=== PATIENT | male | born 1945 | race Caucasian/White ===

== ENCOUNTER → 2021-06-27 11:37 | Outpatient (BNVA) | payer MEDICARE, SELFPAY | PROVIDERS: PCP Family Medicine; Visit Provider Psychiatry & Neurology Neurology | DX: G20 Parkinson's disease (principal); F03.90 Unspecified dementia, unspecified severity, without behavioral disturbance, psychotic disturbance, mood disturbance, and anxiety | CPT/HCPCS: 99212 ==

== ENCOUNTER → 2021-08-07 11:36 | Outpatient (BNVA) | payer MEDICARE, SELFPAY | PROVIDERS: PCP Family Medicine; Visit Provider Psychiatry & Neurology Neurology | DX: G20 Parkinson's disease (principal); F03.90 Unspecified dementia, unspecified severity, without behavioral disturbance, psychotic disturbance, mood disturbance, and anxiety | CPT/HCPCS: 99212 ==

== ENCOUNTER → 2021-11-16 22:11 | Outpatient (REF) | payer MEDICARE, SELFPAY | LOC: HO.SL 22:11 | PROVIDERS: Visit Provider Psychiatry & Neurology Neurology | DX: G47.33 Obstructive sleep apnea (adult) (pediatric) (principal); G47.10 Hypersomnia, unspecified | CPT/HCPCS: 95810 ==

== ENCOUNTER → 2021-11-22 14:00 | Outpatient (BNVA) | payer MEDICARE, SELFPAY | PROVIDERS: PCP Family Medicine; Visit Provider Psychiatry & Neurology Neurology | DX: G20 Parkinson's disease (principal); F03.90 Unspecified dementia, unspecified severity, without behavioral disturbance, psychotic disturbance, mood disturbance, and anxiety | CPT/HCPCS: 99212 ==

== ENCOUNTER → 2022-02-21 08:58 | Outpatient (BNVA) | payer MEDICARE, SELFPAY | PROVIDERS: PCP Family Medicine; Visit Provider Psychiatry & Neurology Neurology | DX: G20 Parkinson's disease (principal); F02.80 Dementia in other diseases classified elsewhere, unspecified severity, without behavioral disturbance, psychotic disturbance, mood disturbance, and anxiety; Z79.899 Other long term (current) drug therapy | CPT/HCPCS: 99212 ==

== ENCOUNTER → 2022-04-24 10:16 | Outpatient (BNVA) | payer MEDICARE, SELFPAY | PROVIDERS: PCP Family Medicine; Visit Provider Psychiatry & Neurology Neurology | DX: G20 Parkinson's disease (principal); F03.90 Unspecified dementia, unspecified severity, without behavioral disturbance, psychotic disturbance, mood disturbance, and anxiety; Z79.899 Other long term (current) drug therapy | CPT/HCPCS: 99212 ==

== ENCOUNTER → 2022-07-04 13:51 | Outpatient (BNVA) | payer MEDICARE, SELFPAY | PROVIDERS: PCP Family Medicine; Visit Provider Psychiatry & Neurology Neurology | DX: G20 Parkinson's disease (principal); F03.90 Unspecified dementia, unspecified severity, without behavioral disturbance, psychotic disturbance, mood disturbance, and anxiety; M54.50 Low back pain, unspecified; Z79.899 Other long term (current) drug therapy | CPT/HCPCS: 99212 ==

== ENCOUNTER → 2022-08-22 09:05 | Outpatient (BNVA) | payer MEDICARE, SELFPAY | PROVIDERS: PCP Family Medicine; Visit Provider Psychiatry & Neurology Neurology | DX: G20 Parkinson's disease (principal); F02.80 Dementia in other diseases classified elsewhere, unspecified severity, without behavioral disturbance, psychotic disturbance, mood disturbance, and anxiety; Z79.899 Other long term (current) drug therapy | CPT/HCPCS: 99212 ==

== ENCOUNTER 2022-10-17 13:49 | Outpatient (AMB) | payer MEDICARE, SELFPAY ==
--- NOTE | 2022-10-17 13:57 | MHC.OFFVIS ---
Intake Vital Signs 10/17/22 13:58 Height 5 ft 10 in Weight 125 lb 1 oz BMI 17.9 BP 124/76 Blood Pressure Location Rt brachial Position Sitting Pulse 64 Pulse Source Pulse Oximeter Pulse Oximetry (%) 98 Oxygen Delivery Method Room Air Intake Visit Reasons: 3m follow up-confirmed Intake Note: Patient presents for 3 month follow up Allergies No Known Allergies Allergy (Verified 10/17/22 14:01) Medication List - Last Reconciled 10/17/22 by Aimee Lees MD alclometasone 0.05% topical BID carbidopa-levodopa 25-100 mg 1 tab PO TID 90 days carbidopa-levodopa 25-100 mg ER 1 tab PO .qd 30 days citalopram 20 mg PO DAILY donepezil 10 mg PO DAILY famotidine 20 mg PO BID fluocinonide-emollient 0.05 % (Fluocinonide-E) appl topical BID melatonin 3 mg PO BEDTIME memantine 28 mg PO DAILY multivitamin (Daily Multi-Vitamin tablet) 1 tab PO DAILY rasagiline 0.5 mg PO DAILY HPI HPI Comments History of Present Illness Details 77y/o male with parkinsons disease, dementia comes for follow up. He is now on sinemet 25/100 [id number] sinemet ER 25/100 6pm .He wake sup 1/night to use the bathroom No hallucinations. He was seen by geriatrics - Dr. Mcmahon who trialed him on mirtazepine but he paradoxical reactions- delusions . It was stopped after few days. .He is on memantine 28mg qd No freezing episodes . He has anxiety when his dopamine level drops- he is panicking and short of breath usually responds to an extra pill with a snack He has trouble gaining weight. He reports constipation. His neuropsych eval was c/w moderate dementia. He is independent in all his ADLs. Sleep study was consistent with moderate to loud snoring AHI 10 REM was not recorded responded to CPAP 11. [facility] Medical History Adenomatous hyperplasia of prostate Anxiety Color blindness GERD (gastroesophageal reflux disease) Low back pain Surgical History H/O rotator cuff surgery History of hernia surgery History of knee surgery Social History Alcohol intake: never Patient Tobacco Use Status: Never used Tobacco Physical Exam Vital Signs: Last Vital Signs Pulse 64 10/17/22 13:58 BP 124/76 10/17/22 13:58 Pulse Ox 98 10/17/22 13:58 Oxygen Delivery Method Room Air 10/17/22 13:58 BMI result Body Mass Index 17.9 Const General: cooperative, healthy appearing and no acute distress Orientation/consciousness: patient oriented x3 HEENT Head: Yes normal to inspection Neck Other: mild antecollis and restricted range of motion Neuro Other: Mild decreased blink and facial expression Voice- mild hypophonia No tremors Fine Finger movements - moderately decreased dante l>R Alternating hand movements - decreased dante Hand movements - decreased dante Foot taps- decreased dante No cog wheel rigidity gait - mild stooped, mild slowness and decreased arm swing R>L General: patient oriented x3 and no focal motor deficits Cranial nerves: Yes CN's II-XII intact bilaterally, Yes Bilaterally intact EOM present, Yes Normal facial strength present and Yes Midline tongue present Cognition (Neuro): abnormal cognition (repeats questions frequently) Motor exam (neuro): 5/5 motor strength present throughout Coordination: [id number] test normal Assessment & Plan Assessment & Plan (1) Parkinson's disease: Code(s): G20 - Parkinson's disease (2) Dementia: Code(s): F03.90 - Unspecified dementia, unspecified severity, without behavioral disturbance, psychotic disturbance, mood disturbance, and anxiety Plan carbidopa/levodopa 25/100 tid and extra 1/2 tab as needed for off period and carbidopa/levodopa ER Namenda XR 28mg qd at bedtime aricept 10mg qd citalopram 20mg for anxiety Increase fluids-5 bottles per day continue exercises.-starting home PT with Lori Alex Use Miralax for constipation Use cane consistently Medications: Changed From carbidopa-levodopa 25-100 mg 1 tab PO QID 90 days 360 tabs 6RF To carbidopa-levodopa 25-100 mg 1 tab PO TID 90 days 270 tabs 6RF Coding Level of Care Code Est Pt Level 4 (22684) Diagnoses Parkinson's disease G20 Dementia F03.90
[2022-10-17 13:58] VITALS: BP 124/76; PULSE 64; O2SAT 98; BMI 17.9
== END 2022-10-17 14:29 | disposition home or self-care (01) ==
PROVIDERS: Visit Provider Psychiatry & Neurology Neurology
DX: G20 Parkinson's disease (principal); F03.90 Unspecified dementia, unspecified severity, without behavioral disturbance, psychotic disturbance, mood disturbance, and anxiety
CPT/HCPCS: 99214

== ENCOUNTER → 2022-10-17 13:49 | Outpatient (BNVA) | payer MEDICARE, SELFPAY | PROVIDERS: Visit Provider Psychiatry & Neurology Neurology | DX: G20 Parkinson's disease (principal); F03.90 Unspecified dementia, unspecified severity, without behavioral disturbance, psychotic disturbance, mood disturbance, and anxiety; K59.00 Constipation, unspecified | CPT/HCPCS: 99212 ==

== ENCOUNTER 2023-01-23 12:52 | Outpatient (AMB) | payer MEDICARE, SELFPAY ==
--- NOTE | 2023-01-23 12:55 | A.OFFVIS_ITS ---
Intake Vital Signs 01/23/23 12:57 Height 5 ft 10 in Weight 130 lb 2 oz BMI 18.7 BP 102/58 L Blood Pressure Location Lt brachial Position Sitting Respiration 17 Pulse 64 Pulse Source Palpation Intake Visit Reasons: 3m follow up - Confirmed Intake Note: Pt presents to the office for a 3 month follow up for Dementia. He is here with his Shon and daughter Jesi. Pt reports hes had mixed days since his last visit. Some good days and some bad days. Bad days consist of some joint stiffness, mild joint pain and increased confusion. His short term memory is mostly impaired. 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 Allergies No Known Allergies Allergy (Verified 01/23/23 12:57) Medication List - Last Reconciled 01/23/23 by Aimee Lees MD alclometasone 0.05% topical BID carbidopa-levodopa 25-100 mg 1 tab PO TID 90 days carbidopa-levodopa 25-100 mg ER 2 tabs PO .qd 30 days citalopram 20 mg PO DAILY donepezil 10 mg PO DAILY famotidine 20 mg PO BID fluocinonide-emollient 0.05 % (Fluocinonide-E) appl topical BID magnesium oxide mg PO memantine 28 mg PO DAILY multivitamin (Daily Multi-Vitamin tablet) 1 tab PO DAILY HPI HPI Comments History of Present Illness Details 77y/o male with parkinsons disease, cathryn crum comes for follow up. He is now on sinemet 25/100 [id number] sinemet ER 25/100 6pm .He wakes up 1/night to use the bathroom He has early wearing off and has some freezing epsidoes No hallucinations. .He is on memantine 28mg qd No freezing episodes . He has trouble gaining weight. He reports constipation. His neuropsych eval was c/w moderate dementia. He is independent in all his ADLs. Sleep study was consistent with moderate to loud snoring AHI 10 REM was not rec orded responded to CPAP 11. [facility] Medical History (Updated 01/23/23 @ 13:19 by Aimee Lees MD) Parkinson's disease without dyskinesia, with fluctuating manifestations Color blindness Low back pain GERD (gastroesophageal reflux disease) Adenomatous hyperplasia of prostate Anxiety Surgical History History of knee surgery H/O rotator cuff surgery History of hernia surgery Social History Alcohol intake: never Patient Tobacco Use Status: Never used Tobacco Physical Exam Vital Signs: Last Vital Signs Pulse 64 01/23/23 12:57 Resp 17 01/23/23 12:57 BP 102/58 L 01/23/23 12:57 BMI result Body Mass Index 18.7 Const General: cooperative, healthy appearing and no acute distress Orientation/consciousness: patient oriented x3 HEENT Head: Yes normal to inspection Neck Other: mild antecollis and restricted range of motion Neuro Other: Mild decreased blink and facial expression Voice- mild hypophonia No tremors Fine Finger movements - moderately decreased dante l>R Alternating hand movements - decreased dante Hand movements - decreased dante Foot taps- decreased dante No cog wheel rigidity gait - mild stooped, mild slowness and decreased arm swing R>L General: patient oriented x3 and no focal motor deficits Cranial nerves: Yes CN's II-XII intact bilaterally, Yes Bilaterally intact EOM present, Yes Normal facial strength present and Yes Midline tongue present Cognition (Neuro): abnormal cognition (repeats questions frequently) Motor exam (neuro): 5/5 motor strength present throughout Coordination: [id number] test normal Assessment & Plan Assessment & Plan (1) Parkinson's disease without dyskinesia, with fluctuating manifestations: Code(s): G20.A2 - Parkinson's disease without dyskinesia, with fluctuations (2) Dementia: Code(s): F03.90 - Unspecified dementia, unspecified severity, without behavioral disturbance, psychotic disturbance, mood disturbance, and anxiety Plan carbidopa/levodopa 25/100 tid and extra 1/2 tab as needed for off period and carbidopa/levodopa ER Namenda XR 28mg qd at bedtime aricept 10mg qd citalopram 20mg for anxiety Increase fluids-5 bottles per day continue exercises.-starting home PT with Lori Alex Use Miralax for constipation Use cane consistently Medications: New lorazepam 0.5 mg PO BID PRN 14 tabs 0RF anxiety Changed From carbidopa-levodopa 25-100 mg ER 2 tabs PO .qd 30 days 60 tabs 3RF To carbidopa-levodopa 25-100 mg ER 1 tab PO .qd 30 days 30 tabs 3RF Coding Level of Care Code Est Pt Level 4 (29483) Diagnoses Parkinson's disease without dyskinesia, with fluctuating manifestations G20.A2 Dementia F03.90
[2023-01-23 12:57] VITALS: BP 102/58; PULSE 64; RESP 17; BMI 18.7
== END 2023-01-23 13:26 | disposition home or self-care (01) ==
PROVIDERS: PCP Family Medicine; Visit Provider Psychiatry & Neurology Neurology
DX: G20.A2 Parkinson's disease without dyskinesia, with fluctuations (principal); F03.90 Unspecified dementia, unspecified severity, without behavioral disturbance, psychotic disturbance, mood disturbance, and anxiety
CPT/HCPCS: 99214

== ENCOUNTER → 2023-01-23 12:52 | Outpatient (BNVA) | payer MEDICARE, SELFPAY | PROVIDERS: PCP Family Medicine; Visit Provider Psychiatry & Neurology Neurology | DX: F03.90 Unspecified dementia, unspecified severity, without behavioral disturbance, psychotic disturbance, mood disturbance, and anxiety (principal); G20.A2 Parkinson's disease without dyskinesia, with fluctuations | CPT/HCPCS: 99212 ==

== ENCOUNTER 2023-06-04 10:12 | Outpatient (AMB) | payer MEDICARE, SELFPAY ==
--- NOTE | 2023-06-04 10:13 | MHC.OFFVIS ---
Intake Vital Signs 06/04/23 10:14 Height 5 ft 10 in Weight 130 lb 8 oz BMI 18.7 BP 102/62 Blood Pressure Location Rt brachial Position Sitting Respiration 17 Pulse 54 Pulse Source Palpation Intake Visit Reasons: f/u for Parkinson's - CONF w/address Intake Note: Pt presents for 4 month follow up for dementia. 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 Allergies No Known Allergies Allergy (Verified 06/04/23 10:14) Medication List - Last Reconciled 06/04/23 by Aimee Lees MD alclometasone 0.05% topical BID carbidopa-levodopa 25-100 mg 1 tab PO TID 90 days carbidopa-levodopa 25-100 mg ER 1 tab PO .qd 30 days citalopram 20 mg PO DAILY donepezil 10 mg PO DAILY famotidine 20 mg PO BID fluocinonide-emollient 0.05 % (Fluocinonide-E) appl topical BID magnesium oxide mg PO memantine 28 mg PO DAILY multivitamin (Daily Multi-Vitamin tablet) 1 tab PO DAILY HPI HPI Comments History of Present Illness Details 77y/o male with parkinsons disease, dementia comes for follow up. His confusion and memory has worsened in the pats few weeks He is now on sinemet 25/100 [id number] sinemet ER 25/100 6pm .He wakes up 1/night to use the bathroom He has early wearing off and has freezing episodes He drinks about 2 glasses of fluids . No hallucinations. .He is on memantine 28mg qd He has trouble gaining weight. He reports constipation- eats a lot of fruit and fiber and takes miralax as needed.But when he gets miralax he can be incontinent. His neuropsych eval was c/w moderate dementia. He needs help with shower and dressing. he walks good with cane - which he uses occasionally. No falls. He sleeps 10-12 hrs a day Sleep study was consistent with moderate to loud snoring AHI 10 REM was not recorded responded to CPAP 11. [facility] Medical History Parkinson's disease without dyskinesia, with fluctuating manifestations Color blindness Low back pain GERD (gastroesophageal reflux disease) Adenomatous hyperplasia of prostate Anxiety Surgical History History of knee surgery H/O rotator cuff surgery History of hernia surgery Social History Alcohol intake: never Patient Tobacco Use Status: Never used Tobacco Physical Exam Vital Signs: Last Vital Signs Pulse 54 06/04/23 10:14 Resp 17 06/04/23 10:14 BP 102/62 06/04/23 10:14 BMI result Body Mass Index 18.7 Const General: cooperative, healthy appearing and no acute distress Orientation/consciousness: patient oriented x3 HEENT Head: Yes normal to inspection Neck Other: mild antecollis and restricted range of motion Neuro Other: Mild decreased blink and facial expression Voice- mild hypophonia No tremors Fine Finger movements - moderately decreased dante l>R Alternating hand movements - decreased dante Hand movements - decreased dante Foot taps- decreased dante No cog wheel rigidity gait - mild stooped, mild slowness and decreased arm swing R>L General: patient oriented x3 and no focal motor deficits Cranial nerves: Yes CN's II-XII intact bilaterally, Yes Bilaterally intact EOM present, Yes Normal facial strength present and Yes Midline tongue present Cognition (Neuro): abnormal cognition (repeats questions frequently) Motor exam (neuro): 5/5 motor strength present throughout Coordination: [id number] test normal Assessment & Plan Assessment & Plan (1) Parkinson's disease without dyskinesia, with fluctuating manifestations: Code(s): G20.A2 - Parkinson's disease without dyskinesia, with fluctuations (2) Dementia: Code(s): F03.90 - Unspecified dementia, unspecified severity, without behavioral disturbance, psychotic disturbance, mood disturbance, and anxiety Plan carbidopa/levodopa 25/100 tid and extra 1/2 tab as needed for off period and carbidopa/levodopa ER Namenda XR 28mg qd at bedtime aricept 10mg qd citalopram 20mg for anxiety Increase fluids-5 bottles per day continue exercises.-starting home PT with Lori Alex Use Miralax for constipation Use cane consistently Needs help with his ADLS- needs 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
[2023-06-04 10:14] VITALS: BP 102/62; PULSE 54; RESP 17; BMI 18.7
== END 2023-06-04 10:47 | disposition home or self-care (01) ==
PROVIDERS: PCP Family Medicine; Visit Provider Psychiatry & Neurology Neurology
DX: G20.A2 Parkinson's disease without dyskinesia, with fluctuations (principal); F03.90 Unspecified dementia, unspecified severity, without behavioral disturbance, psychotic disturbance, mood disturbance, and anxiety
CPT/HCPCS: 99214

== ENCOUNTER → 2023-06-04 10:12 | Outpatient (BNVA) | payer MEDICARE, SELFPAY | PROVIDERS: PCP Family Medicine; Visit Provider Psychiatry & Neurology Neurology | DX: G20.A2 Parkinson's disease without dyskinesia, with fluctuations (principal); F03.90 Unspecified dementia, unspecified severity, without behavioral disturbance, psychotic disturbance, mood disturbance, and anxiety | CPT/HCPCS: 99212 ==

== ENCOUNTER 2023-08-09 13:20 | Outpatient (AMB) | payer MEDICARE, SELFPAY ==
--- NOTE | 2023-08-09 13:30 | A.OFFVIS_ITS ---
Vital Signs 08/09/23 13:38 Height 5 ft 10 in Weight 126 lb 2 oz BMI 18.1 BP 92/64 Blood Pressure Location Rt brachial Position Sitting Pulse 64 Pulse Source Pulse Oximeter Pulse Oximetry (%) 98 Oxygen Delivery Method Room Air Intake Visit Reasons: Follow Up - LVM w/add Intake Note: Patient presents for f/u. Have questions about the medication Carbidopa- Levodopa. More confuse and needs guidance. More incontinence. Allergies No Known Allergies Allergy (Verified 08/09/23 13:36) Medication List - Last Reconciled 08/09/23 by Aimee Lees MD alclometasone 0.05% topical BID carbidopa-levodopa 23.75-95 mg ER (Rytary) 2 caps PO TID carbidopa-levodopa 25-100 mg 1 tab PO TID 90 days carbidopa-levodopa 25-100 mg ER 1 tab PO .qd 30 days citalopram 20 mg PO DAILY donepezil 10 mg PO DAILY famotidine 20 mg PO BID fluocinonide-emollient 0.05 % (Fluocinonide-E) appl topical BID ipratropium bromide 2 sprays intranasal BID magnesium oxide mg PO memantine 28 mg PO DAILY multivitamin (Daily Multi-Vitamin tablet) 1 tab PO DAILY HPI Comments Details: 77y/o male with parkinsons disease, dementia comes for follow up. His confusion and memory is worse, He has PT through [facility] but could not get services through elder care - he has a private home health- but she comes only once a week He is now on sinemet 25/100 [id number] sinemet ER 25/100 6pm . 1 hr after the medicine he usually slows down for 1 1/2 hrs. No hallucinations He had 1 fall 1 month ago -in a grocery store when he tried to pick something He wakes up 1/night to use the bathroom He has early wearing off and has freezing episodes He drinks about 2 glasses of fluids . No hallucinations. .He is on memantine 28mg qd He has trouble gaining weight. He reports constipation- eats a lot of fruit and fiber and takes miralax as needed.But when he gets miralax he can be incontinent. His neuropsych eval was c/w moderate dementia. He needs help with shower and dressing. he walks good with cane - which he uses occasionally. No falls. He sleeps 10-12 hrs a day Sleep study was consistent with moderate to loud snoring AHI 10 REM was not recorded responded to CPAP 11. [facility] Medical History Parkinson's disease without dyskinesia, with fluctuating manifestations Color blindness Low back pain GERD (gastroesophageal reflux disease) Adenomatous hyperplasia of prostate Anxiety Surgical History History of knee surgery H/O rotator cuff surgery History of hernia surgery Social History Alcohol intake: never Patient Tobacco Use Status: Never used Tobacco Physical Exam Vital Signs: Last Vital Signs Pulse 64 08/09/23 13:38 BP 92/64 08/09/23 13:38 Pulse Ox 98 08/09/23 13:38 Oxygen Delivery Method Room Air 08/09/23 13:38 BMI result Body Mass Index 18.1 Const General: cooperative, healthy appearing and no acute distress Orientation/consciousness: patient oriented x3 HEENT Head: Yes normal to inspection Neck Other: mild antecollis and restricted range of motion Neuro Other: Mild decreased blink and facial expression Voice- mild hypophonia No tremors Fine Finger movements - moderately decreased dante l>R Alternating hand movements - decreased dante Hand movements - decreased dante Foot taps- decreased dante No cog wheel rigidity gait - mild stooped, mild slowness and decreased arm swing R>L General: patient oriented x3 and no focal motor deficits Cranial nerves: Yes CN's II-XII intact bilaterally, Yes Bilaterally intact EOM present, Yes Normal facial strength present and Yes Midline tongue present Cognition (Neuro): abnormal cognition (repeats questions frequently) Motor exam (neuro): 5/5 motor strength present throughout Coordination: [id number] test normal Assessment & Plan Assessment & Plan (1) Parkinson's disease without dyskinesia, with fluctuating manifestations: Code(s): G20.A2 - Parkinson's disease without dyskinesia, with fluctuations Category: Medical (2) Dementia: Code(s): F03.90 - Unspecified dementia, unspecified severity, without behavioral disturbance, psychotic disturbance, mood disturbance, and anxiety Category: Medical Plan [facility] 2 caps tid Info about ADult day services Namenda XR 28mg qd at bedtime aricept 10mg qd citalopram 20mg for anxiety Increase fluids-5 bottles per day Use Miralax for constipation Use cane consistently Needs help with his ADLS- needs 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
[2023-08-09 13:38] VITALS: BP 92/64; PULSE 64; O2SAT 98; BMI 18.1
== END 2023-08-09 14:09 | disposition home or self-care (01) ==
PROVIDERS: PCP Family Medicine; Visit Provider Psychiatry & Neurology Neurology
DX: G20.A2 Parkinson's disease without dyskinesia, with fluctuations (principal); F03.90 Unspecified dementia, unspecified severity, without behavioral disturbance, psychotic disturbance, mood disturbance, and anxiety
CPT/HCPCS: 99214

== ENCOUNTER → 2023-08-09 13:20 | Outpatient (BNVA) | payer MEDICARE, SELFPAY | PROVIDERS: PCP Family Medicine; Visit Provider Psychiatry & Neurology Neurology | DX: G20.A2 Parkinson's disease without dyskinesia, with fluctuations (principal); F02.80 Dementia in other diseases classified elsewhere, unspecified severity, without behavioral disturbance, psychotic disturbance, mood disturbance, and anxiety | CPT/HCPCS: 99212 ==

== ENCOUNTER 2023-12-10 14:56 | Outpatient (AMB) | payer MEDICARE, SELFPAY ==
--- NOTE | 2023-12-10 15:09 | A.OFFVIS_ITS ---
Vital Signs 12/10/23 15:10 Height 5 ft 10 in Weight 122 lb 8 oz BMI 17.6 BP 100/70 Blood Pressure Location Rt brachial Position Sitting Respiration 16 Pulse 60 Pulse Source Palpation Intake Visit Reasons: 6 month F/U Intake Note: Pt presents tot office for a 4 month follow up for dementia. Director Client Required: No Allergies No Known Allergies Allergy (Verified 12/10/23 15:09) Medication List - Last Reconciled 12/10/23 by Aimee Lees MD alclometasone 0.05% topical BID carbidopa-levodopa 25-100 mg 1 tab PO TID 90 days citalopram 20 mg PO DAILY donepezil 10 mg PO DAILY famotidine 20 mg PO BID fluocinonide-emollient 0.05 % (Fluocinonide-E) appl topical BID ipratropium bromide 2 sprays intranasal BID magnesium oxide mg PO memantine 28 mg PO DAILY multivitamin (Daily Multi-Vitamin tablet) 1 tab PO DAILY HPI Comments Details: 78y/o male with parkinsons disease, dementia comes for follow up. No recent falls . He uses a cane most of the time. His confusion and memory are worse. He has rare RBD like episode last week He is now on sinemet 25/100 [id number] - 6pm . it takes 1 hr to start working and he has OFF periods mostly in the evenings He stopped CR and replaced with regular at 6 pm He was tried on Rytary - did not help but tried the lowest dose and was also expensive. His felt he was drowsier with ER No hallucinations He wakes up 1/night to use the bathroom He drinks about 2 glasses of fluids .. .He is on memantine 28mg qd and donepezil 10mg qd He reports constipation- eats a lot of fruit and fiber and prune juice when he gets miralax he can be incontinent. His neuropsych eval was c/w moderate dementia. He needs help with shower and dressing. He sleeps 10-12 hrs a day Sleep study was consistent with moderate to loud snoring AHI 10 REM was not recorded responded to CPAP 11. [facility] Medical History Parkinson's disease without dyskinesia, with fluctuating manifestations Color blindness Low back pain GERD (gastroesophageal reflux disease) Adenomatous hyperplasia of prostate Anxiety Surgical History History of knee surgery H/O rotator cuff surgery History of hernia surgery Social History Alcohol intake: never Patient Tobacco Use Status: Never used Tobacco Physical Exam Vital Signs: Last Vital Signs Pulse 60 12/10/23 15:10 Resp 16 12/10/23 15:10 BP 100/70 12/10/23 15:10 BMI result Body Mass Index 17.6 Const General: cooperative, healthy appearing and no acute distress Orientation/consciousness: patient oriented x3 HEENT Head: Yes normal to inspection Neck Other: mild antecollis and restricted range of motion Neuro Other: Mild decreased blink and facial expression Voice- mild hypophonia No tremors Fine Finger movements - moderately decreased dante l>R Alternating hand movements - decreased dante Hand movements - decreased dante Foot taps- decreased dante No cog wheel rigidity gait - mild stooped, mild slowness and decreased arm swing R>L General: patient oriented x3 and no focal motor deficits Cranial nerves: Yes CN's II-XII intact bilaterally, Yes Bilaterally intact EOM present, Yes Normal facial strength present and Yes Midline tongue present Cognition (Neuro): abnormal cognition (repeats questions frequently) Motor exam (neuro): 5/5 motor strength present throughout Coordination: [id number] test normal Assessment & Plan Assessment & Plan (1) Parkinson's disease without dyskinesia, with fluctuating manifestations: Code(s): G20.A2 - Parkinson's disease without dyskinesia, with fluctuations Category: Medical (2) Dementia: Code(s): F03.90 - Unspecified dementia, unspecified severity, without behavioral disturbance, psychotic disturbance, mood disturbance, and anxiety Category: Medical Plan Trial sinemet 25/100/entacapone 200mg qid Info about ADult day services - but his does not think it will be a good fit for him Namenda XR 28mg qd at bedtime Increase aricept 10mg 1 1/2 tab citalopram 20mg for anxiety Increase fluids-5 bottles per day Use Miralax for constipation Use cane consistently Needs help with his ADLS- needs 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
[2023-12-10 15:10] VITALS: BP 100/70; PULSE 60; RESP 16; BMI 17.6
== END 2023-12-10 15:44 | disposition home or self-care (01) ==
PROVIDERS: PCP Family Medicine; Visit Provider Psychiatry & Neurology Neurology
DX: G20.A2 Parkinson's disease without dyskinesia, with fluctuations (principal); F03.90 Unspecified dementia, unspecified severity, without behavioral disturbance, psychotic disturbance, mood disturbance, and anxiety
CPT/HCPCS: 99214; G2211

== ENCOUNTER → 2023-12-10 14:56 | Outpatient (BNVA) | payer MEDICARE, SELFPAY | PROVIDERS: PCP Family Medicine; Visit Provider Psychiatry & Neurology Neurology | DX: G20.A2 Parkinson's disease without dyskinesia, with fluctuations (principal); F03.90 Unspecified dementia, unspecified severity, without behavioral disturbance, psychotic disturbance, mood disturbance, and anxiety | CPT/HCPCS: 99212 ==

== ENCOUNTER 2024-02-20 13:39 | Outpatient (AMB) | payer MEDICARE, SELFPAY ==
--- NOTE | 2024-02-20 13:40 | A.OFFVIS_ITS ---
Intake Visit Reasons: FU Intake Note: Patient following up Allergies No Known Allergies Allergy (Verified 02/20/24 13:40) Medication List - Last Reconciled 02/20/24 by Aimee Lees MD alclometasone 0.05% topical BID carbidopa-levodopa 25-100 mg 1 tab PO QID citalopram 20 mg PO DAILY donepezil 23 mg PO DAILY entacapone 200 mg PO QID famotidine 20 mg PO BID fluocinonide-emollient 0.05 % (Fluocinonide-E) appl topical BID ipratropium bromide 2 sprays intranasal BID magnesium oxide mg PO memantine 28 mg PO DAILY multivitamin (Daily Multi-Vitamin tablet) 1 tab PO DAILY HPI Comments Details: 78y/o male with parkinsons disease, dementia calls for follow up. His helps with the appointment. He was able to travel to [place] last week. He had 1 fall when he was trying to get to his bed last week. He uses a cane most of the time. His confusion and memory are worse. He has more sundowning , RBD and confusional arousals since his return from [place] He is now on sinemet 25/100 [id number] - 6pm . it takes 1 hr to start working and he has OFF periods mostly in the evenings He wakes up 1/night to use the bathroom He drinks about 2 glasses of fluids .. .He is on memantine 28mg qd and donepezil 15mg qd He reports constipation- eats a lot of fruit and fiber and prune juice when he gets miralax he can be incontinent. His neuropsych eval was c/w moderate dementia. He needs help with shower and dressing. He sleeps 10-12 hrs a day Sleep study was consistent with moderate to loud snoring AHI 10 REM was not recorded responded to CPAP 11. [facility] Medical History Parkinson's disease without dyskinesia, with fluctuating manifestations Color blindness Low back pain GERD (gastroesophageal reflux disease) Adenomatous hyperplasia of prostate Anxiety Surgical History History of knee surgery H/O rotator cuff surgery History of hernia surgery Social History Alcohol intake: never Patient Tobacco Use Status: Never used Tobacco Physical Exam Neuro Other: Awake and speech is good responded to simple questions and commands Telehealth Telehealth Telehealth Platform: Telephone Location of provider rendering services: practice address Location of patient: address on file Patient Identification confirmed using: Name, : Yes Telehealth method: voice only Patient verbally consented to treatment: Yes Patient verbally consented to billing insurance company: Yes Patient informed of any privacy concerns related to visit: Yes Minutes spent on Phone/Video with Pt.: 22 Assessment & Plan Assessment & Plan (1) Parkinson's disease without dyskinesia, with fluctuating manifestations: Code(s): G20.A2 - Parkinson's disease without dyskinesia, with fluctuations Category: Medical (2) Dementia: Code(s): F03.90 - Unspecified dementia, unspecified severity, without behavioral disturbance, psychotic disturbance, mood disturbance, and anxiety Category: Medical Qualifiers: Dementia type: Parkinson's disease Dementia behavioral or psychological symptom: unspecified whether behavioral, psychotic, or mood disturbance or anxiety Dementia severity: moderate Qualified Code(s): G20.A1 - Parkinson's disease without dyskinesia, without mention of fluctuations; F02.B0 - Dementia in other diseases classified elsewhere, moderate, without behavioral disturbance, psychotic disturbance, mood disturbance, and anxiety Plan Continue sinemet 25/100/entacapone 200mg qid Namenda XR 28mg qd at bedtime Increase aricept 23 mg qd tab citalopram 20mg for anxiety Increase fluids-5 bottles per day Use Miralax for constipation Use cane consistently Needs help with his ADLS- needs BLANCHING MACHINE OPERATOR services Medications: Changed From donepezil 15 mg (1.5 x 10 mg) PO DAILY 45 tabs 6RF To donepezil 23 mg PO DAILY 30 tabs 6RF Coding Level of Care Code Tele Est Pt Level 4 (00039) Complex EM visit Add On G2211 Diagnoses Parkinson's disease without dyskinesia, with fluctuating manifestations G20.A2 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
--- OUTSIDE RECORDS SUMMARY | 2024-02-26 02:38 | XMS_ITS ---
Author Name [facility] Organization Unknown History of Medication Use Medication Directions Dispensed Refills Start Date End Date Stat us carbidopa-levodopa (SINEMET CR) 25-100 MG per tablet Take 1 tablet by mouth. 02/14/2023 active carbidopa-levodopa (SINEMET) 25-100 MG per tablet Take 1 tablet by mouth 3 (three) times a day. 02/14/2023 aborted memantine 28 MG Capsule SR 24 hr Take 1 capsule by mouth daily. 02/14/2023 active donepezil (ARICEPT) 10 MG tablet Take 1 tablet (10 mg total) by mouth daily. 02/14/2023 aborted citalopram (CeleXA) 20 MG tablet Take 1 tablet (20 mg total) by mouth daily. 02/14/2023 active carbidopa-levodopa (SINEMET) 25-100 MG per tablet Take 1.5 tablets by mouth 3 (three) times a day. 02/14/2023 active rivastigmine (EXELON) 4.6 MG/24HR Place 1 patch on the skin daily. 04/28/2023 active famotidine (PEPCID) 20 MG tablet Take 1 tablet (20 mg total) by mouth 2 (two) times a day. 02/14/2023 active Problems Problem Status Onset Date Problem Type Date of Resolution Source Primary osteoarthritis of right knee active 2022-01-09 ProblemAct [facility] Parkinsons active 2022-01-09 ProblemAct [facility] Nontraumatic tear of left rotator cuff active 2022-01-09 ProblemAct [facility] Dementia associated with other underlying disease, without behavioral disturbance, psychotic disturbance, mood disturbance, or anxiety, unspecified dementia severity (HCC) active EncounterDiagnosisAct [facility] Primary parkinsonism (HCC) active EncounterDiagnosisAct [facility] History of arthroplasty of left knee active 2022-01-09 ProblemAct [facility]
== END 2024-02-20 15:27 | disposition home or self-care (01) ==
LOC: HO.HSMS 13:39
PROVIDERS: PCP Family Medicine; Visit Provider Psychiatry & Neurology Neurology
DX: G20.A2 Parkinson's disease without dyskinesia, with fluctuations (principal); F02.B0 Dementia in other diseases classified elsewhere, moderate, without behavioral disturbance, psychotic disturbance, mood disturbance, and anxiety
CPT/HCPCS: 99443

== ENCOUNTER 2024-05-06 11:18 | Outpatient (REF) | payer MEDICARE, SELFPAY ==
[2024-05-06 11:38] LABS: MANUAL DIFF FLAG NO
--- OUTSIDE RECORDS SUMMARY | 2024-05-06 12:02 | XMS_ITS | Encounter Summary ---
Author Organization [facility] Address [address] [place] [address] Care Team Providers Care Chip Washer Name Role Phone Jethro Gonzalez MD Primary Care Provider [phone] Encounter Details Date Type Department Care Team ([facility] st Contact Info) Description 04/23/2023 Scanned Document [facility] Neurology [address] [address] Douglas Bullock MD [address] [place] [address] Social History Tobacco Use Types Packs/Day Years Used Date Smoking Tobacco: Former Cigarettes Q uit: 1973 Smokeless Tobacco: Never Alcohol Use Standard Drinks/Week Comments Not Currently 0 (1 standard drink = 0.6 oz pur e alcohol) Sex and Gender Information Value Date Recorded Sex Assigned at Male 11/12/2022 12:10 PM EDT Gender Identity Male 11/12/2022 12:10 PM EDT Sexual Orientation Not on file documented as of this encounter Plan of Treatment Not on file documented as of this encounter Visit Diagnoses Not on filedocumented in this encounter Care Teams Chip Washer Relationship Specialty Start Date End Date Jethro Gonzalez MD [address] [place] [address] PCP - General 11/12/22 documented as of this encounter
--- OUTSIDE RECORDS SUMMARY | 2024-05-06 12:02 | XMS_ITS | Encounter Summary ---
Author Organization [facility] Address [address] [place] [address] Care Team Providers Care Pedicab Driver Name Role Phone Jethro Gonzalez MD Primary Care Provider [phone] Encounter Details Date Type Department Care Team ([facility] st Contact Info) Description 04/23/2023 Scanned Document [facility] Neurology [address] [address] Douglas Bullock MD [address] [place] [address] Social History Tobacco Use Types Packs/Day Years [...] on filedocumented in this encounter Care Teams Pedicab Driver Relationship Specialty Start Date End Date Jethro Gonzalez MD [address] [place] [address] PCP - General 11/12/22 documented as of this encounter
--- OUTSIDE RECORDS SUMMARY | 2024-05-06 12:02 | XMS_ITS | Encounter Summary ---
Author Organization [facility] Address [address] [place] [address] Care Team Providers Care Credit Support Counselor Name Role Phone Jethro Gonzalez MD Primary Care Provider [phone] Encounter Details Date Type Department Care Team ([facility] st Contact Info) Description 02/26/2023 Scanned Document [facility] NEUROLOGY SCAN Neurology, Scan Social History Tobacco Use Types Packs/Day Years [...] on filedocumented in this encounter Care Teams Credit Support Counselor Relationship Specialty Start Date End Date Jethro Gonzalez MD [address] [place] [address] PCP - General 11/12/22 documented as of this encounter
--- OUTSIDE RECORDS SUMMARY | 2024-05-06 12:02 | XMS_ITS | Encounter Summary ---
Author Organization [facility] Address [address] [place] [address] Care Team Providers Care Cutting Machine Operator Helper Name Role Phone Jethro Gonzalez MD Primary Care Provider [phone] Encounter Details Date Type Department Care Team ([facility] Contact Info) Description 03/06/2023 Scanned Document [facility] Home Health Services, Scan Social History Tobacco Use Types Packs/Day [...] on filedocumented in this encounter Care Teams Cutting Machine Operator Helper Relationship Specialty Start Date End Date Jethro Gonzalez MD [address] [place] [address] PCP - General 11/12/22 documented as of this encounter
--- OUTSIDE RECORDS SUMMARY | 2024-05-06 12:02 | XMS_ITS | Clinical Summary ---
Author Organization [facility] Address [address] [place] [address] Care Team Providers Care Purchasing Manager/Sales Name Role Phone Jethro Gonzalez MD Primary Care Provider [phone] Allergies No known active allergies Medications Medication Sig Dispensed Refills Start Date End Date Status famotidine (PEPCID) 20 MG tablet Take 1 tablet (20 mg total) by mouth 2 (two) times a day. 11/18/2022 Active citalopram (CeleXA) 20 MG tablet Take 1 tablet (20 mg total) by mouth daily. 11/22/2022 Active memantine 28 MG Capsule SR 24 hr Take 1 capsule by mouth daily. 11/15/2022 Active carbidopa-levodopa (SINEMET CR) 25-100 MG per tablet Take 1 tablet by mouth. 08/20/2022 Active carbidopa-levodopa (SINEMET) 25-100 MG per tabletIndications:Gisselle jeaneth parkinsonism (HCC) Take 1.5 tablets by mouth 3 (three) times a day. 405 tablet 1 02/12/2023 Active rivastigmine (EXELON) 4.6 MG/24HRIndications:De mentia associated with other underlying disease, without behavioral disturbance, psychotic disturbance, mood disturbance, or anxiety, unspecified dementia severity (HCC),Primary parkinsonism (HCC) APPLY 1 PATCH EVERY DAY 90 patch 1 07/22/2023 Active Active Problems Problem Noted Date Diagnosed Date Primary osteoarthritis of right knee 01/09/2022 02/12/2023 Parkinson's disease dementia 01/09/2022 Parkinsons 01/09/2022 02/12/2023 Nontraumatic tear of left rotator cuff 2 02/12/2023 History of arthroplasty of left knee 01/09/2022 02/12/2023 Social History Tobacco Use Types Packs/Day Years Used Date Smoking Tobacco: Former Cigarettes Q uit: 1973 Smokeless Tobacco: Never Tobacco Cessation:Counseling Given: Not Answered Alcohol Use Standard Drinks/Week Comments Not Currently 0 (1 standard drink = 0.6 oz pur e alcohol) Sex and Gender Information Value Date Recorded Sex Assigned at Male 11/12/2022 12:10 PM EDT Gender Identity Male 11/12/2022 12:10 PM EDT Sexual Orientation Not on file Last Filed Vital Signs Vital Sign Reading Time Taken Comments Blood Pressure - - Pulse - - Temperature - - Respiratory Rate - - Oxygen Saturation - - Inhaled Oxygen Concentration - - Weight 61.2 kg (135 lb) 02/12/2023 1:02 PM EST Height 177.8 cm (5' 10 ) 02/12/2023 1:02 PM EST Body Mass Index 19.37 02/12/2023 1:02 PM EST Plan of Treatment Health Maintenance Due Date Last Done Comments DTaP/Tdap/Td Vaccines (1 - Tdap) 08/17/1962 Pneumococcal Vaccines 50+ (1 of 1 - PCV) 08/17/1993 Zoster (Shingles) Vaccine (1 of 2) 08/17/1993 RSV Vaccine 60 years and older and Patients (1 - 1-dose 75+ series) 08/17/2018 Influenza Vaccine 10/17/2023 01/05/2020, 01/05/2020 COVID-19 Vaccine ( - 2023-2 5 season) 2023 Hepatitis B Vaccines Aged Out No long er eligible based on patient's age to complete this topic Care Teams Purchasing Manager/Sales Relationship Specialty Start Date End Date Jethro Gonzalez MD [address] [place] [address] [facility] - General 11/12/22
--- OUTSIDE RECORDS SUMMARY | 2024-05-06 12:02 | XMS_ITS | Encounter Summary ---
Author Organization [facility] Address [address] [place] [address] Care Team Providers Care Drilling Machine Runner Name Role Phone Jethro Gonzalez MD Primary Care Provider [phone] Encounter Details Date Type Department Care Team ([facility] st Contact Info) Description 04/23/2023 Scanned Document [facility] Neurology [address] [address] Douglas Bullock MD [address] [place] [address] Social History Tobacco Use Types Packs/Day Years [...] on filedocumented in this encounter Care Teams Drilling Machine Runner Relationship Specialty Start Date End Date Jethro Gonzalez MD [address] [place] [address] PCP - General 11/12/22 documented as of this encounter
--- OUTSIDE RECORDS SUMMARY | 2024-05-06 12:02 | XMS_ITS | Encounter Summary ---
Author Organization [facility] Address [address] [place] [address] Care Team Providers Care Locomotive Crane Operator Helper Name Role Phone Jethro Gonzalez MD Primary Care Provider [phone] Encounter Details Date Type Department Care Team ([facility] st Contact Info) Description 06/06/2023 Scanned Document [facility] Neurology [address] [address] Douglas Bullock MD [address] [place] [address] Social History Tobacco Use Types Packs/Day Years [...] on filedocumented in this encounter Care Teams Locomotive Crane Operator Helper Relationship Specialty Start Date End Date Jethro Gonzalez MD [address] [place] [address] PCP - General 11/12/22 documented as of this encounter
[2024-05-06 12:03] LABS: Appearance Urine Cloudy; Color Urine Yellow; Glucose Urine UA Negative (Negative); Leukocyte Esterase Urine Small (1+) (Negative); Nitrite Urine Negative (Negative); Specific Gravity - Urine >= 1.030 (1.005-1.025); UMIC TRIGGER UACC YES; Urine Blood Negative (Negative); Urine Ketones Trace mg/dL (Negative); Urine Protein 30 (1+) mg/dL (Neg-Trace)
[2024-05-06 12:06] LABS: Basophils Percent Auto 0.6 % (0-2); Eosinophils Absolute Auto 0.1 X10*3/uL (0.0-0.4); Eosinophils Percent Auto 2.7 % (0-4); Hematocrit 32.9 % (42.0-52.0); Hemoglobin 10.9 g/dl (14.0-18.0); Imm Gran Abs Auto 0.01 X10*3/uL (0.00-0.03); Imm Gran Pct Auto 0.2 % (0.0-0.4); Lymphocytes Absolute Auto 1.2 X10*3/uL (1.2-4.9); Lymphocytes Percent Auto 25.5 % (20-40); Mean Corpuscular HGB Conc 33.1 g/dl (31.0-36.0); Mean Corpuscular Hemoglobin 31.2 pg (27.0-33.0); Mean Corpuscular Volume 94.3 fL (80.0-98.0); Mean Platelet Volume 9.9 fL (9.4-12.4); Monocytes Absolute Auto 0.3 X10*3/uL (0.1-1.2); Monocytes Percent Auto 5.7 % (2-11); Neutrophils Absolute Auto 3.1 x10*3/uL (2.0-8.3); Neutrophils Percent Auto 65.3 % (45-73); Platelet Count 169 X10*3/uL (160-400); Red Blood Count 3.49 X10*6/uL (4.60-5.80); Red Cell Distribution Width 12.5 % (11.0-16.0); White Blood Count 4.8 X10*3/uL (4.8-10.8)
[2024-05-06 12:13] LABS: Bacteria Urine None Seen (None Seen); Calcium Oxalate Crystals Urine Present; UACC Culture Trigger YES; WBC Urine 0-5 /HPF (0-5)
[2024-05-06 12:41] LABS: Alanine Aminotransferase < 6 U/L (0-40); Albumin Level 3.9 g/dL (3.5-5.0); Alkaline Phosphatase 75 U/L (39-117); Anion Gap 10 (12-20); Aspartate Amino Transferase 21 U/L (5-37); Bilirubin Total 0.4 mg/dL (0.0-1.0); Blood Urea Nitrogen 31 mg/dL (9-16); Calcium 9.4 mg/dL (8.4-10.2); Carbon Dioxide 27 mmol/L (22-29); Chloride 107 mmol/L (96-108); Estimated Glomerular Filt Rate 60; Glucose Random 115 mg/dL (60-115); Potassium 3.8 mmol/L (3.3-5.1); Sodium 140 mmol/L (135-145); Total Protein 7.1 g/dL (6.5-8.0)
== END 2024-05-06 11:19 | disposition home or self-care (01) ==
LOC: HO.LAB 11:18
PROVIDERS: PCP Family Medicine; Visit Provider Nurse Practitioner Family
DX: R44.3 Hallucinations, unspecified (principal); G47.10 Hypersomnia, unspecified; M54.50 Low back pain, unspecified
CPT/HCPCS: 36415; 80053; 81001; 81003; 85025; 87086

== ENCOUNTER → 2024-05-14 10:00 | Outpatient (AMB) | payer MEDICARE, SELFPAY ==
--- NOTE | 2024-05-14 10:01 | MHC.OFFVIS ---
Intake Visit Reasons: f/u appt per and Debbie Intake Note: Per MD Patient was added to schedule for Hallucinations Allergies No Known Allergies Allergy (Verified 05/14/24 10:01) Medication List - Last Reconciled 05/14/24 by Aimee Lees MD alclometasone 0.05% topical BID carbidopa-levodopa 25-100 mg 1 tab PO QID citalopram 20 mg PO DAILY clonazepam 0.5 mg PO BEDTIME donepezil 23 mg PO DAILY donepezil 10 mg PO BEDTIME 30 days entacapone 200 mg PO QID famotidine 20 mg PO BID fluocinonide-emollient 0.05 % (Fluocinonide-E) appl topical BID ipratropium bromide 2 sprays intranasal BID magnesium oxide mg PO melatonin 5 mg PO .qhs memantine 28 mg PO DAILY multivitamin (Daily Multi-Vitamin tablet) 1 tab PO DAILY HPI Comments Details: 78y/o male with parkinsons disease, dementia calls for follow up. His helps with the appointment. He was able to travel to [place] last week. His motor symptoms are worse, he is slower. He has sleep talking- yelling and screaming History from last visit- He uses a cane most of the time. His confusion and memory are worse. He has more sundowning , RBD and confusional arousals since his return from [place] He is now on sinemet 25/100 [id number] - 6pm . it takes 1 hr to start working and he has OFF periods mostly in the evenings He wakes up 1/night to use the bathroom He drinks about 2 glasses of fluids .. .He is on memantine 28mg qd and donepezil 15mg qd He reports constipation- eats a lot of fruit and fiber and prune juice when he gets miralax he can be incontinent. His neuropsych eval was c/w moderate dementia. He needs help with shower and dressing. He sleeps 10-12 hrs a day Sleep study was consistent with moderate to loud snoring AHI 10 REM was not recorded responded to CPAP 11. [facility] Medical History (Updated 05/14/24 @ 10:40 by Aimee Lees MD) REM behavioral disorder Parkinson's disease without dyskinesia, with fluctuating manifestations Color blindness Low back pain GERD (gastroesophageal reflux disease) Adenomatous hyperplasia of prostate Anxiety Surgical History History of knee surgery H/O rotator cuff surgery History of hernia surgery Social History Alcohol intake: never Patient Tobacco Use Status: Never used Tobacco Physical Exam Const General: cooperative Telehealth Telehealth Telehealth Platform: Telephone Location of provider rendering services: practice address Location of patient: address on file Patient Identification confirmed using: Name, : Yes Telehealth method: voice only Patient verbally consented to treatment: Yes Patient verbally consented to billing insurance company: Yes Patient informed of any privacy concerns related to visit: Yes Minutes spent on Phone/Video with Pt.: 22 Assessment & Plan Assessment & Plan (1) Parkinson's disease without dyskinesia, with fluctuating manifestations: Code(s): G20.A2 - Parkinson's disease without dyskinesia, with fluctuations Category: Medical (2) Dementia: Code(s): F03.90 - Unspecified dementia, unspecified severity, without behavioral disturbance, psychotic disturbance, mood disturbance, and anxiety Category: Medical Qualifiers: Dementia type: Parkinson's disease Dementia severity: moderate Dementia behavioral or psychological symptom: unspecified whether behavioral, psychotic, or mood disturbance or anxiety Qualified Code(s): G20.A1 - Parkinson's disease without dyskinesia, without mention of fluctuations; F02.B0 - Dementia in other diseases classified elsewhere, moderate, without behavioral disturbance, psychotic disturbance, mood disturbance, and anxiety (3) REM behavioral disorder: Code(s): G47.52 - REM sleep behavior disorder Category: Medical Plan Continue sinemet 25/100/entacapone 200mg qid Namenda XR 28mg qd at bedtime start clonazepam 0.5mg qhs Melatonin 5mg qhs chnage donepezil 10 mg qam instead of qhs citalopram 20mg for anxiety Increase fluids-5 bottles per day Use Miralax for constipation Use cane consistently Needs help with his ADLS- needs APPLICATION SECURITY SPECIALIST services Medications: New melatonin 5 mg PO .qhs 30 caps 0RF clonazepam administer 30 minutes before bedtime 0.5 mg PO BEDTIME 30 tabs 2RF Discontinued donepezil Discontinued Reason: Patient no longer taking 23 mg PO DAILY 30 tabs 6RF Coding Level of Care Code Tele Est Pt Level 4 (42843) Diagnoses Parkinson's disease without dyskinesia, with fluctuating manifestations G20.A2 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
--- OUTSIDE RECORDS SUMMARY | 2024-05-14 11:30 | XMS_ITS | Encounter Summary ---
Author Organization [facility] Address [address] [place] [address] Care Team Providers Care Senior Biostatistician Name Role Phone Jethro Gonzalez MD Primary Care Provider [phone] Encounter Details Date Type Department Care Team ([facility] st Contact Info) Description 04/23/2023 Scanned Document [facility] Neurology [address] [address] Douglas Bullock MD [address] [place] [address] Social History Tobacco Use Types Packs/Day Years [...] on filedocumented in this encounter Care Teams Senior Biostatistician Relationship Specialty Start Date End Date Jethro Gonzalez MD [address] [place] [address] PCP - General 11/12/22 documented as of this encounter
--- OUTSIDE RECORDS SUMMARY | 2024-05-14 11:30 | XMS_ITS | Encounter Summary ---
Author Organization [facility] Address [address] [place] [address] Care Team Providers Care Product Design Specialist Name Role Phone Jethro Gonzalez MD Primary Care Provider [phone] Encounter Details Date Type Department Care Team ([facility] st Contact Info) Description 04/23/2023 Scanned Document [facility] Neurology [address] [address] Douglas Bullock MD [address] [place] [address] Social History Tobacco Use Types Packs/Day Years [...] on filedocumented in this encounter Care Teams Product Design Specialist Relationship Specialty Start Date End Date Jethro Gonzalez MD [address] [place] [address] PCP - General 11/12/22 documented as of this encounter
--- OUTSIDE RECORDS SUMMARY | 2024-05-14 11:30 | XMS_ITS | Encounter Summary ---
Author Organization [facility] Address [address] [place] [address] Care Team Providers Care Linen Sorter Name Role Phone Jethro Gonzalez MD Primary Care Provider [phone] Encounter Details Date Type Department Care Team ([facility] Contact Info) Description 03/06/2023 Scanned Document [facility] Home Health Services, Scan [...] on filedocumented in this encounter Care Teams Linen Sorter Relationship Specialty Start Date End Date Jethro Gonzalez MD [address] [place] [address] PCP - General 11/12/22 documented as of this encounter
--- OUTSIDE RECORDS SUMMARY | 2024-05-14 11:30 | XMS_ITS | Encounter Summary ---
Author Organization [facility] Address [address] [place] [address] Care Team Providers Care Prefabricator Name Role Phone Jethro Gonzalez MD Primary Care Provider [phone] Encounter Details Date Type Department Care Team ([facility] st Contact Info) Description 06/06/2023 Scanned Document [facility] Neurology [address] [address] Douglas Bullock MD [address] [place] [address] Social History Tobacco Use Types Packs/Day Years [...] on filedocumented in this encounter Care Teams Prefabricator Relationship Specialty Start Date End Date Jethro Gonzalez MD [address] [place] [address] PCP - General 11/12/22 documented as of this encounter
--- OUTSIDE RECORDS SUMMARY | 2024-05-14 11:30 | XMS_ITS | Encounter Summary ---
Author Organization [facility] Address [address] [place] [address] Care Team Providers Care Field Operations Coordinator Name Role Phone Jethro Gonzalez MD Primary Care Provider [phone] Encounter Details Date Type Department Care Team ([facility] st Contact Info) Description 02/26/2023 Scanned Document [facility] NEUROLOGY SCAN Neurology, Scan Social History Tobacco [...] on filedocumented in this encounter Care Teams Field Operations Coordinator Relationship Specialty Start Date End Date Jethro Gonzalez MD [address] [place] [address] PCP - General 11/12/22 documented as of this encounter
--- OUTSIDE RECORDS SUMMARY | 2024-05-14 11:30 | XMS_ITS | Clinical Summary ---
Author Organization [facility] Address [address] [place] [address] Care Team Providers Care Software Development Advisor Name Role Phone Jethro Gonzalez MD Primary Care Provider [phone] Allergies No known active allergies Medications Medication [...] age to complete this topic Care Teams Software Development Advisor Relationship Specialty Start Date End Date Jethro Gonzalez MD [address] [place] [address] [facility] - General 11/12/22
--- OUTSIDE RECORDS SUMMARY | 2024-05-14 11:30 | XMS_ITS | Encounter Summary ---
Author Organization [facility] Address [address] [place] [id number] Care Team Providers Care Pet Care Technician Name Role Phone Jethro Gonzalez MD Primary Care Provider [phone] Encounter Details Date Type Department Care Team ([facility] st Contact Info) Description 04/23/2023 Scanned Document [facility] Neurology [address] [id number] Douglas Bullock MD [address] [place] [id number] Social History Tobacco Use Types Packs/Day Years [...] on filedocumented in this encounter Care Teams Pet Care Technician Relationship Specialty Start Date End Date Jethro Gonzalez MD [address] [place] [id number] PCP - General 11/12/22 documented as of this encounter
== END ==
PROVIDERS: PCP Family Medicine; Visit Provider Psychiatry & Neurology Neurology
DX: G20.A2 Parkinson's disease without dyskinesia, with fluctuations (principal); F02.B0 Dementia in other diseases classified elsewhere, moderate, without behavioral disturbance, psychotic disturbance, mood disturbance, and anxiety; G47.52 REM sleep behavior disorder
CPT/HCPCS: 98016